=== PATIENT | male | born 1950 | race Caucasian/White ===

== ENCOUNTER → 2018-01-21 | Outpatient (CLI) | payer OTHER ==
[~2018-01-21] MED LIST: ABREVA2 GM TOP; ADVAIR HFA 230M12 GM INH; AMBIEN 5 MG TABL5 M1 PO; ANTIVERT25 MG PO; ATIVAN0.5 MG PO; BENADRYL25 MG PO; BISACODYL SUPP10 MG RECTAL; COLACE100 MG PO; DULERA 200 MCG/13 GM INH; ENOXAPARIN80 MG/0.1 SUBQ; FLONASE 0.05%50 MCG NASAL; GEMFIBROZIL 60600 MG PO; IRON325 PO; LEXAPRO20 MG PO; LIORESAL 10 MG10 MG PO; MIRALAX17 GM PO; MUCINEX600 MG PO; OMEPRAZOLE20 M2 PO; ONDANSETRON HCL4 M2 PO; OXYCODONE HCL 55 MG PO; OXYCONTIN20 M1 PO; PRAVACHOL40 MG PO; PREDNISONE 5 MG5 M1 PO; REGLAN 10 MG TA10 MG PO; REQUIP 0.25 M0.25 M1 PO; SENNA8.6 MG PO; TESTOPEL75 MG INJ; TRAZODONE 150150 M1 PO; VENTOLIN HFA 1818 GM INH; XARELTO20 MG PO; ZYRTEC10 MG PO
[2018-01-21 11:00] VITALS: BP 102/61; BP 106/68
[2018-01-21 13:16] VITALS: BP 106/68; BP 112/67; BP 95/62
== END ==
LOC: OPONC 00:26
DX: C34.90 Malignant neoplasm of unspecified part of unspecified bronchus or lung (principal); C79.51 Secondary malignant neoplasm of bone; C79.52 Secondary malignant neoplasm of bone marrow; D64.9 Anemia, unspecified
CPT/HCPCS: 91030